=== PATIENT | male | born 1990 | race Caucasian/White ===

== ENCOUNTER 2024-05-02 11:00 | Outpatient (RCR) | payer MEDICAID, SELFPAY ==
--- NOTE | 2023-12-14 13:05 | HP.PTEVAL ---
Patient's Visit Information Visit Information Visit Information: THIERRY SALINAS is a 33 year old M referred to Physical Therapy by Dr. Sanjiv Rodriguez DPM with a diagnosis of RIGHT AND LEFT PLANTAR FASCITIS. Date of Evaluation: 12/14/23 Physical Therapist: Manoj Khanna, PT, Cert MDT, OCS Visit Plan Frequency: 2-3x /Week Duration: 4-6 Weeks Plan: PT INTERVENTIONS MANUAL THERAPY STM/HAWK TOOL/STICK PLANTAR FASCIA ,US ,STRETCHING CALF/PLANTAR FASCIA , Subjective Subjective: This 33 y/o male presents to physical therapy with plantar fasciitis right > left. Patient has had foot pain for ~ 2 years with right worse but left 6 months ago. Patient has tried conservative treatment night splint ,and plan for orthotics and stretches. Pain located plantar fascia to calf. Aggravating factors walking/standing progresses as day goes on. Patient tried power step. No medication . Had x-rays showed bone spurs. Patient able to sleep well at night . Patient symptoms affects QOL and function/job demands. Patient goals to decrease pain. SOCIAL: VOCATION:[employer] Pain Right Foot: Pain Intensity (Out of 10): 5 Pain Intensity Range: 10 Left Foot: Pain Intensity (Out of 10): 3 Pain Intensity Range: 10 Objective Objective: POSTURE: Pes planus NEURO: intact GAIT: reciprocal pattern PALPATION: tender calf ,plantar fascia AROM: dorsiflexion 5 degrees ,plantar flexion 65 degrees ,inversion 40 degrees ,eversion 5 degrees MMT:bilateral ankle dorsiflexion,posterior tibialis ,plantarfacsia ,peroneus 4/5 Balance/Special Test Scores Lower Extremity Functional Score: 49 Goals Goal 1:: Patient to be I with HEP for feet/PF Goal Time Frame: 4-6 Weeks Goal 2:: Patient to improve LFES score by 5 points to improve function Goal Time Frame: 4-6 Weeks Goal 3:: Patient to demonstrate 50% improvement with less pain and improved function Goal Time Frame: 4-6 Weeks Goal 4:: Patient to be able to walk and stand through night at work with min pain feet Goal Time Frame: 4-6 Weeks Rehabilitation Potential Physical Therapy Diagnosis: This patient has bilateral fascia pain with calf pain with pain with walking/standing affects job demands and housework tasks thus benefit from skilled PT Rehabilitation Potential: Good Anticipated Interventions Patient/Client Instruction: Educate patient on: Condition and Plan of Care For the Purpose of:: To decrease pain, To increase ROM, To improve muscle performance and motor function, To increase tolerance to activity/condition/position, To improve ability of physical actions for home/community/work/leisure, To improve health of tissue, To decrease soft tissue restriction, To increase flexibility/ROM, To prevent re-injury and To improve tolerance to ADL's Therapeutic Exercise to Include: Strength training, Flexibilty training and Active ROM Comment: PLANTAR FASCIA For the Purpose of:: To decrease pain, To increase ROM, To improve muscle performance and motor function, To improve ability to perform ADL's, To increase tolerance to activity/condition/position, To improve ability of physical actions for home/community/work/leisure, To improve health of tissue, To decrease soft tissue restriction, To increase flexibility/ROM, To reduce risk of recurrence and To prevent re-injury Manual Therapy Techniques to Include: Mobilization and Soft tissue mobilization Comment: CALF /PF STICK ( HAWK) For the Purpose of:: To decrease pain, To increase ROM, To improve muscle performance and motor function, To improve ability to perform ADL's, To increase tolerance to activity/condition/position, To improve ability of physical actions for home/community/work/leisure, To improve health of tissue, To decrease soft tissue restriction and To increase flexibility/ROM Ultrasound (thermal/non thermal): Yes For the Purpose of:: To decrease pain, To increase ROM, To improve nutrient delivery to tissue, To increase oxygenation perfusion, To decrease soft tissue restriction and To increase flexibility/ROM Text: Thank you for the opportunity to evaluate your patient. For Medicare and Medicare HMO plans, please review the plan of care and approve it. It will need to be FAXED BACK to us at [phone] for Medicare purposes. For Medicare only, by signing this I certify the plan of care. Please let me know if there are questions or concerns regarding this plan of care. Physician Signature: Date:
--- NOTE | 2024-05-02 11:59 | HP.PTDCSUM ---
Discharge Summary D/C summary: It has been my pleasure to treat THIERRY SALINAS referred by Dr. Sanjiv Rodriguez DPDeisy, with the diagnosis of RIGHT AND LEFT PLANTAR FASCITIS for a total of 22 visit(s). Discharge Date: 05/02/24 Please see the following information for a summary of their discharge status. Subjective Subjective: Have new orthotics Overall feeling better Pain Right Foot: Pain Intensity (Out of 10): 6 Left Foot: Pain Intensity (Out of 10): 3 Overall Improvement % Improvement: 85 Objective Objective/Function: POSTURE: Pes planus NEURO: intact GAIT: reciprocal pattern PALPATION: tender calf ,plantar fascia,heel AROM: dorsiflexion 5 degrees ,plantar flexion 65 degrees ,inversion 40 degrees ,eversion 5 degrees MMT:bilateral ankle dorsiflexion,posterior tibialis ,plantarfacsia ,peroneus 4/5 Goals Goal 1:: Patient to be I with HEP for feet/PF Goal Progress: Goal Met Goal 2:: Patient to improve LFES score by 5 points to improve function Goal Progress: Goal Met Goal 3:: Patient to demonstrate 50% improvement with less pain and improved function Goal Progress: Goal Met Goal 4:: Patient to be able to walk and stand through night at work with min pain feet Goal Progress: Goal Met Plan Plan: D/C ' D/C Information d/c sentence: If there are questions or concerns regarding this patient's physical therapy, please feel free to call me at [phone]. Thank you for the referral of this patient. Sincerely, Manoj Khanna, PT, Cert MDT, OCS Balance/Gait/Functional tests Balance/Special Test Scores Lower Extremity Functional Score: 49 Improvement % Improvement: 85
== END 2024-05-02 13:44 | disposition home or self-care (01) ==
LOC: PT 11:00
PROVIDERS: Visit Provider Student in an Organized Health Care Education/Training Program
DX: M72.2 Plantar fascial fibromatosis (principal)
CPT/HCPCS: 97035; 97110; 97140; 97162; 97530